=== PATIENT | female | born 1995 | race Caucasian/White ===

== ENCOUNTER → 2020-04-01 09:45 | Outpatient (CLI) | payer OTHER, SELFPAY ==
--- NOTE | 2020-04-01 09:49 | US_ITS ---
PROCEDURE: US OB /MATERNAL DETAIL CLINICAL INDICATION: 20 week gestation Anatomy evaluation COMPARISON: No exams were available for comparison FINDINGS: There is a single live fetus which is in cephalic presentation. The cervix is closed and measures 5 cm transabdominal. Placenta is anterior in implantation and grade 1. The . Complete survey performed and was unremarkable on the submitted images as in PACS. No discrete anomalies identified on survey imaging by technologist. Active fetus. Three-vessel cord with satisfactory umbilical cord insertion. 4- chamber heart noted. Survey of brain & ventricles Unremarkable. Face and neck survey unremarkable. Diaphragm and chest views unremarkable. Abdomen: Both kidneys noted and unremarkable. Stomach noted and satisfactory. Spine: Survey of the spine satisfactory with no anomalies identified nor imaged. Both arms and legs noted. Amniotic Fluid: Adequate. Maternal adnexa: No significant findings. Measurements: Average ultrasound age 20weeks 1day. Gestational Age the 21 weeks 6 days Estimated due date by ultrasound age 1008/18/2020. Estimated weight 335g BPD = 20weeks 2days OFD = 20 weeks 4 days HC = 19weeks 4days AC = 20weeks 3days FL = 20weeks 1day Growth Percentile= 2 percent% Heart Rate = 144bpm Cerebellum = 20weeks Humerus = 20weeks 3days HC/AC is 1.12 CI is 0.78 FL/BPD is 0.69 FL/AC is 0.21 IMPRESSION: There is a live IUP present at 20 weeks and 1 day. heart body motion noted. There is cephalic position. No obvious anomalies. All parameters correlate. The growth percentile is low at 2 percent but could be due to inaccurate dates. Please correlate with clinical findings. Dictated by: Genaro Simms MD 04/01/2020 16:33 Electronically signed by Genaro Simms MD in [place] 04/01/2020 16:33
== END ==
PROVIDERS: Visit Provider Nurse Practitioner Obstetrics & Gynecology
DX: Z3A.20 20 weeks gestation of pregnancy (principal)
CPT/HCPCS: 76811

== ENCOUNTER → 2020-04-01 10:51 | Outpatient (CLI) | payer OTHER, SELFPAY ==
[2020-04-01 12:22] LABS: Basophils # 0.1 K/mm3 (0-0.2); Basophils % 0.7 % (0.1-2.0); Eosinophils % 0.4 % (0.1-12.0); Hemoglobin 12.8 g/dL (12.2-16.2); Lymphocytes # 1.6 K/mm3 (0.7-4.5); Lymphocytes % 20.6 % (10-50); Mean Corpuscular HGB Conc 33.8 g/dL (31.8-35.4); Mean Corpuscular Hemoglobin 31.4 pg (27.0-31.2); Mean Corpuscular Volume 92.8 fl (81-99); Mean Platelet Volume 8.5 fl (7.4-10.4); Monocytes # 0.3 K/mm3 (0.1-1.0); Monocytes % 3.3 % (1.7-9.3); Neutrophils # 5.7 K/mm3 (1.8-7.8); Platelet Count 207 K/mm3 (142-424); Red Cell Distribution Width 14.3 % (11.5-17.5); White Blood Count 7.6 K/mm3 (4.8-10.8)
[2020-04-02 08:13] LABS: HIV Screen 4th Generation wRfx Non Reactive (Non Reactive)
[2020-04-02 14:16] LABS: Hepatitis B Surface Antigen Negative (Negative); Hepatitis C Antibody <0.1 s/co ratio (0.0-0.9); Rapid Plasma Reagin Ab Titer Non Reactive (NonRea<1:1); Rubella Antibodies, IgG 8.47 index (Immune >0.99)
== END ==
PROVIDERS: Visit Provider Nurse Practitioner Obstetrics & Gynecology
DX: Z3A.20 20 weeks gestation of pregnancy (principal)
CPT/HCPCS: 36415; 85025; 86592; 86703; 86762; 86850; 87340; 87380; G0432

== ENCOUNTER 2020-07-02 08:36 | Outpatient (CLI) | payer OTHER, SELFPAY ==
[2020-07-02 09:20] LABS: Glucose,Fasting 99 mg/dl (74-100)
[2020-07-02 10:45] LABS: Glucose 1 Hour 183 mg/dL (74-100)
[2020-07-02 10:55] VITALS: BP 132/70; PULSE 104; RESP 18; TEMP 36.6; O2SAT 97
== END 2020-07-02 10:55 | disposition home or self-care (01) ==
LOC: LAB 08:38 → INF 10:59
PROVIDERS: Visit Provider Nurse Practitioner Obstetrics & Gynecology
DX: Z34.90 Encounter for supervision of normal pregnancy, unspecified, unspecified trimester (principal)
CPT/HCPCS: 36415; 82951; 96372; J2790

== ENCOUNTER → 2020-08-06 17:32 | Outpatient (CLI) | payer OTHER, SELFPAY | PROVIDERS: Visit Provider Nurse Practitioner Obstetrics & Gynecology | DX: Z34.90 Encounter for supervision of normal pregnancy, unspecified, unspecified trimester (principal) | CPT/HCPCS: 86403 ==

== ENCOUNTER 2020-08-09 06:10 | Inpatient (IN) | payer OTHER, SELFPAY ==
[2020-08-09 06:18] VITALS: BMI 37.3
[2020-08-09 06:34] LABS: Microscopic, Urine URINE MICROSCOPIC (MICROSCOPIC)
[2020-08-09 06:37] LABS: Basophils % 0.3 % (0.1-2.0); Eosinophils # 0.1 K/mm3 (0.0-0.4); Eosinophils % 0.5 % (0.1-12.0); Hemoglobin 11.7 g/dL (12.2-16.2); Lymphocytes # 2.1 K/mm3 (0.7-4.5); Lymphocytes % 18.2 % (10-50); Mean Corpuscular HGB Conc 31.6 g/dL (31.8-35.4); Mean Corpuscular Hemoglobin 27.2 pg (27.0-31.2); Mean Corpuscular Volume 86.1 fl (81-99); Mean Platelet Volume 10.1 fl (7.4-10.4); Monocytes # 0.5 K/mm3 (0.1-1.0); Monocytes % 4.4 % (1.7-9.3); Neutrophils # 8.9 K/mm3 (1.8-7.8); Neutrophils % 76.6 % (37.0-80.0); Platelet Count 232 K/mm3 (142-424); Red Cell Distribution Width 13.8 % (11.5-17.5); White Blood Count 11.6 K/mm3 (4.8-10.8)
[2020-08-09 06:42] LABS: Appearance,Urine CLEAR (Clear); Bilirubin,Urine Negative (Negative); Blood, Urine 2+ (Negative); Color,Urine YELLOW (Yellow); Glucose,Urine (UA) Negative (Negative); Ketones,Urine Negative (Negative); Leukocyte Esterase,Urine 1+ (Negative); Nitrate,Urine Negative (Negative); Protein,Urine Negative (Negative); Urobilinogen,Urine 0.2 EU/dl (0.2)
[2020-08-09 06:52] LABS: Benzodiazepines Screen,Urine Negative ng/ml (<200)
[2020-08-09 06:53] LABS: Amphetamine/Metha Screen,Urine Negative ng/ml (<1000)
--- NOTE | 2020-08-09 06:53 | HMH.LABNOT ---
Labor Note - Subjective: Date: 08/09/20 Time: 06:53 regular contraction - Objective: NST:: Reactive Contractions:: every 2-3 minutes Cervical Dilation:: 8 Effacement:: 100% Station: 0 Membranes: artificially ruptured - Fetus: Monitoring?: Yes monitoring type:: External - Assessment: Labor progressing?: Yes Cephalopelvic disproportion?: No Patient Problems: All Active Problems (Acute) - Plan: Anesthesia for epidural?: No Continue to labor down?: Yes Plan for ?: No Continue to monitor?: Yes Start pushing?: No
[2020-08-09 06:54] LABS: Bacteria,Urine 1+ /lpf; Barbiturates Screen,Urine Negative ng/ml (<200); Methadone Screen,Urine Negative ng/ml (<300)
[2020-08-09 06:54] LABS: Glucose,Random 110 mg/dL (74-100)
--- NOTE | 2020-08-09 06:54 | HMH.OBAPHP ---
OB - H&P: HPI Antepartum - History of Present Illness Chief complaint: Regular contractions History of present illness: She is a 25-year-old 2 para 0 aborta 1 who was 38 and 4 weeks gestational age. She has had contractions for the last day. She came in in active labor and was found to be 8 cm dilated. - History of Present Criteria for establishing EDC:: LMP confirmed by 1st trimester US care: good care Ultrasounds: normal 1st trimester US, normal mid trimester US Obstetrical complications: none Medical complications: none - Labs Blood type: O (-) negative Rubella: immune RPR/VDRL: nonreactive GBS status: negative HBsAG: negative [facility] History I have reviewed the patient's past medical history: Yes Medical History: Reports:: Seizures *Have you ever received a pneumonia vaccine?: No *Have you received a flu vaccine this season?: No (not flu season) Other Surgeries: Yes: No Previous Surgery Amputation: No Fractures: No - *Social History Smoking Status: Current every day smoker Tobacco Type: cigarettes # Packs/Day (cigarettes): 1 Alcohol Intake: never *Occupational Status:: unemployed Housing: house Household Members: significant other *Travel in the last 8 weeks: None Family Hx:: No significant family history Review of Systems - Review of Systems Review of systems:: pertinent systems reviewed and negative unless documented below Meds Home Medications Medication Instructions Recorded Confirmed Type ferrous sulfate 325 mg (65 mg 325 mg PO DAILY #30 tab 04/01/20 08/06/20 Rx iron) tablet prenat.vits,álvaro,vyv-grrf-efkxj 1 tab PO DAILY 30 Days #30 tab 04/01/20 08/06/20 Rx acetaminophen 300 mg-codeine 30 mg 1 tab PO Q8H PRN #30 tab 07/09/20 08/06/20 Rx tablet Allergies Allergy/AdvReac Type Severity Reaction Status Date / Time cefaclor [From [facility]] Allergy Unknown Verified 08/06/20 16:25 OB - H&P: Exam - Constitutional no acute distress - Routine HEENT Exam Head: Present: normocephalic Eye: Present: EOMI, PERRL ENT: Present: mucous membranes moist - Routine Neck Exam Present: supple, full ROM - Routine Respiratory Exam Absent: accessory muscle use (good air entry bilaterally), respiratory distress, wheezes, crackles - Routine Cardiovascular Exam Present: RRR. Absent: murmur - Routine Abdominal Exam Present: soft, normoactive bowel sounds. Absent: tenderness, distended, guarding - Routine Rectal Exam Patient deferred: visual exam, digital exam - Routine Exam Patient deferred: external exam, groin exam, perineal exam - Routine Extremities Exam Present: full ROM. Absent: cyanosis, edema - Routine Skin Exam Present: intact. Absent: cyanosis - Routine Neurological Exam Present: alert, oriented X3 - Routine Psychiatric Exam Present: normal affect OB - Results - Labs Labs: Short CBC 08/09/20 Range/Units 06:25 WBC 11.6 H (4.8-10.8) K/mm3 Hgb 11.7 L (12.2-16.2) g/dL Hct 37.0 (37.0-47.0) % Plt Count 232 (142-424) K/mm3 Urine 08/09/20 Range/Units 05:50 Urine Color Yellow (Yellow) Urine Appearance Clear (Clear) Urine pH 6.0 (5.0-8.5) Ur Specific [place] 1.010 (1.005-1.030) Urine Protein Negative (Negative) Urine Glucose (UA) Negative (Negative) OB - A/P Antepartum (1) Normal delivery at term Status: Acute (2) Deaf mutism, congenital Status: Acute - Additional Plan Planning to breastfeed?: No Plan: expectant management Additional Information:: I ruptured her membranes and there was clear fluid. Will expect a vaginal delivery.
[2020-08-09 06:55] LABS: Cannabinoid Screen,Urine Negative ng/ml (<50)
[2020-08-09 06:56] LABS: Cocaine Screen,Urine Negative ng/ml (<300); Opiate Screen,Urine Negative ng/ml (<300)
[2020-08-09 06:57] LABS: Phencyclidine Screen,Urine Negative ng/ml (<25)
[2020-08-09 07:05] VITALS: BMI 37.3
[2020-08-09 07:09] LABS: Coronavirus 19 IgG Antibody Negative (Negative); Coronavirus 19 IgM Antibody Negative (Negative)
[2020-08-09 07:10] VITALS: BP 131/84; PULSE 90; RESP 20; TEMP 36.6; O2SAT 99
--- NOTE | 2020-08-09 09:49 | HMH.LABNOT ---
Labor Note - Subjective: Date: 08/09/20 Time: 09:49 regular contraction - Objective: NST:: Reactive Contractions:: every 2-3 minutes Cervical Dilation:: 9-10 Effacement:: 100% Station: +1 Membranes: artificially ruptured - Fetus: Monitoring?: Yes monitoring type:: External - Assessment: Labor progressing?: Yes Cephalopelvic disproportion?: No Patient Problems: All Active Problems Normal delivery at term (Acute) Deaf mutism, congenital (Acute) (Acute) - Plan: Anesthesia for epidural?: No Continue to labor down?: Yes Plan for ?: No Continue to monitor?: Yes Start pushing?: Yes
--- NOTE | 2020-08-09 10:48 | P.PCN_ITS ---
- Delivery Note Delivery Date:: 08/09/20 Delivery Time:: 10:28 Anesthesia Type: None Was labor medically induced?: No Induction method: none Gestational age (weeks): 38 delivered prior to 39 weeks?: Yes Justification for early elective delivery:: Active Labor Infant Gender: Male at 1 minute: 9 at 5 minutes: 9 LAC or MLE?: LAC Delivery Procedure:: She is a 25-year-old 2 para 0 aborta 1 who was 38 and 4 weeks gestatio nal age. She came in in active labor. She arrived and was found to be 8 cm dilated. She subsequently had her membranes ruptured and was augmented with oxytocin. She progressed to full dilation and delivered spontaneously a liveborn male child at 10:28 AM on the morning of August 09, 2020. On deliver the shoulder the rest the 's body rapidly delivered. The baby was vigorous and the oropharynx and nasopharynx were bulb suctioned. We allowed the cord to continue to pulsate for approximately 1 minute. We then doubly clamped the cord and cut the cord. The baby was then placed on the mother's abdomen for further care. The nurses assigned Apgars of 9 at 1 minute and 9 at 5 minutes. We then obtained cord blood as well as cord pH. She received IV oxytocin using gentle traction on the cord and countertraction the fundus I was able to easily deliver the placenta intact at 10:31 AM. He had a normal three-vessel cord. She had a second-degree perineal laceration. I infiltrated 20 cc of 1% Xylocaine subcutaneously. I then closed the vaginal closed using running 3-0 Vicryl Rapide suture in a locked fashion. The deep tissues of the perineum were then closed with 2-0 Vicryl suture. The skin was closed with subcuticular interrupted 2-0 Vicryl suture. She has O Rh- blood, she is rubella immune and her group B streptococcus status was unknown. She did receive IV antibiotics while in labor. Her estimated blood loss was approximately 350 cc. Laceration:: vaginal Placental Delivery Description: Spontaneous
[2020-08-09 12:05] VITALS: BP 125/75; PULSE 88; RESP 18; TEMP 36.6
[2020-08-09 16:23] VITALS: BP 122/79; PULSE 101; RESP 18; TEMP 36.5
[2020-08-09 19:53] VITALS: BP 137/85; PULSE 97; RESP 18; TEMP 36.8; O2SAT 99
[2020-08-10 03:07] VITALS: BP 128/84; PULSE 99; RESP 18; TEMP 36.7; O2SAT 99
[2020-08-10 05:42] LABS: Hematocrit 29.6 % (37.0-47.0); Hemoglobin 9.4 g/dL (12.2-16.2)
[2020-08-10 08:10] VITALS: BP 129/84; PULSE 105; RESP 18; TEMP 36.7; O2SAT 100
[2020-08-10 12:03] VITALS: BP 127/88; PULSE 89; RESP 18; TEMP 36.6; O2SAT 98
[2020-08-10 16:42] VITALS: BP 130/72; PULSE 110; RESP 18; TEMP 36.8; O2SAT 99
--- NOTE | 2020-08-10 19:00 | HMH.ACPN2 ---
Internal Medicine - PN: Subj *Date: 08/10/20 *Time: 19:00 Interval history: She is doing very well this evening. She is eating and drinking and ambulating. She is bottlefeeding. Her lochia is normal. She received RhoGam earlier today. Exam Vital signs and Labs for Last 24 Hours: Temp Pulse Resp BP Pulse Ox 98.3 F 110 H 18 130/72 99 08/10/20 16:42 08/10/20 16:42 08/10/20 16:42 08/10/20 16:42 08/10/20 16:42 Laboratory Results - last 24 hr 08/10/20 05:25: Hgb 9.4 L D, Hct 29.6 L 08/10/20 05:25: Blood Type O Negative, Antibody Screen Negative, Screen Negative, Baby's Rh Status Positive 08/10/20 09:33: Rhogam Infusion Rhogam release I & O for Last 24 hours: Intake & Output 08/08/20 08/09/20 08/10/20 08/11/20 11:59 11:59 11:59 11:59 Weight 191 lb Microbiology Reports for the Last 24 Hours: Microbiology 08/09/20 05:50 Urine,Clean Catch Urine Culture - Preliminary - Constitutional no acute distress - *Routine HEENT Exam Head: Present: normocephalic Eye: Present: EOMI, PERRL ENT: Present: mucous membranes moist Assessment and Plan (1) Normal delivery at term Status: Acute Category: Medical Code(s): O80 - Encounter for full-term uncomplicated delivery (2) Deaf mutism, congenital Status: Acute Category: Medical Code(s): H91.3 - Deaf nonspeaking, not elsewhere classified - Assessment and plan all Dx Assessment and Plan for all problems:: She continues to do well. We will plan to send her home in the morning.
[2020-08-10 19:53] VITALS: BP 134/86; PULSE 110; RESP 18; TEMP 36.8; O2SAT 99
[2020-08-11 00:09] VITALS: BP 126/86; PULSE 97; RESP 18; TEMP 36.8; O2SAT 99
[2020-08-11 03:59] VITALS: BP 119/82; PULSE 90; RESP 18; TEMP 36.8; O2SAT 99
[2020-08-11 07:54] VITALS: BP 123/83; PULSE 96; RESP 18; TEMP 36.8; O2SAT 99
--- NOTE | 2020-08-11 09:06 | HMH.OBDCSM ---
General - General Admission date:: 08/09/20 Discharge date: 08/11/20 HPI - History of Present Illness History of present illness: She is a 25-year-old 3 now para 1 aborta 2 who was 38 and 4 weeks gestational age. She came in active labor. When she arrived she was found to be 8 cm dilated. Hospital Course Hospital Course: She subsequently progressed to full dilation and delivered spontaneously a liveborn male child at 10:28 AM on the morning of August 09, 2020. The baby weighed 7 pounds 7 ounces and was 20 inches long. He had Apgars of 9 at 1 minute and 9 at 5 minutes. She had a second-degree perineal laceration. She has done well and has remained afebrile throughout her hospitalization. She is eating and drinking and ambulating. She is bottlefeeding. Her social security assessor is Dr. Austin. She has O Rh- blood and she has received RhoGam. She was rubella immune and group B streptococcus was unknown at the time of her delivery. She did receive IV antibiotics while in labor. She is discharged home to follow-up with me in approximately 2 weeks time. We will continue with her vitamins and iron. She will take ymdk-ffg-[id number] analgesics for her discomfort. She was given the usual instructions with respect to limiting her activity, driving and sexual activity. Her condition on discharge is stable and improved. Rhogam Administration: Given Objective Vital signs: Temp Pulse Resp BP Pulse Ox 98.3 F 96 H 18 123/83 99 08/11/20 07:54 08/11/20 07:54 08/11/20 07:54 08/11/20 07:54 08/11/20 07:54 no acute distress - *Routine HEENT Exam Head: Present: normocephalic Eye: Present: EOMI, PERRL ENT: Present: mucous membranes moist Results Labs on day of discharge: Labs from last 24 hours 08/10/20 09:33 Rhogam Infusion Rhogam release Preliminary micro results at discharge 08/09/20 05:50 Urine Culture - Preliminary Urine,Clean Catch DS: Diagnosis - Discharge Diagnosis (1) Normal delivery at term Status: Acute (2) Deaf mutism, congenital Status: Acute Discharge Plan - Patient Discharge Instructions ACTIVITY: No heavy lifting DIET: continue same diet Additional Instructions: No heavy lifting or strenuous activity, nothing in the vagina for 6 weeks. Patient Instructions: Depression, Hemorrhage, DI for Labor and Delivery, Vaginal , DI for Pre-eclampsia, [facility] Post Discharge Instructions, Preventing the Spread of Coronavirus Discharge Instructions - Follow up Plan Follow up with: Asif Gallagher MD [Staff Physician] - Disposition: Home, Self-[facility] Medications: Home Medications Medication Instructions Recorded Confirmed Type acetaminophen 300 mg-codeine 30 mg 1 tab PO Q8H PRN #30 tab 07/09/20 08/09/20 Rx tablet Ferrous Sulfate 325 mg PO DAILY 08/09/20 08/09/20 History Vit Calc,Iron,Folic [Kpn] 1 tab PO DAILY 08/09/20 08/09/20 History Prescriptions/Medication Reconciliation: Continued acetaminophen 300 mg-codeine 30 mg tablet 1 tab PO Q8H PRN #30 tab PRN Reason: pain Vit Calc,Iron,Folic [Kpn] 1 tab PO DAILY Ferrous Sulfate 325 mg PO DAILY - Problem Reconciliation Problems Reviewed?: Yes
[2020-08-11 11:45] VITALS: BP 120/60; PULSE 92; RESP 20; TEMP 36.9
--- NOTE | 2020-08-11 13:10 | SW/DCPLANNER ---
Addendum entered by Maria Victoria Melara 08/11/20 14:33: I have followed up with [facility] and this case did NOT meet criteria for CPS to investigate. I will also relay message to OB staff. Original Note: I have visited with: patient, infant (Alvin Hankins [birth year]/09/2020), infants father (Rasheed Petitt 02/11/1981) and family member Julieth Ramirez. Julieth was present during my visit to translate due to Betsy and Rasheed being deaf. All questions were able to be answered at time of my visit. Patient stated she found out she was at 10 weeks but due to COVID and being scared to come to [facility] she did not have her first visit till 20 weeks. Patient only had a total of 4 visits. Patient stated that one visit she was sick and one visit did not have transportation. I have stressed the importance to Julieth the importance of returning to all follow up visits once discharging. Patient and will both discharge today. Patient, Rasheed and will reside at [address] [place] [address] and Julieth lives down the [address]. Angel contact number is [phone]. This is patients first child. Patient is already established with [facility] but has refused HANDS at this time. Patient does have a crib, carseat, clothing and diapers. Nursing staff (Charlene Peraza) has reported that patient and Rasheed were timid yesterday with care for infant but has improved today. I have reported this case to [facility] ID# is [id number].
== END 2020-08-11 12:30 | disposition home or self-care (01) | DRG 807 ==
LOC: OBOUT 06:13 → OB 06:13
PROVIDERS: Admitting Provider Nurse Practitioner Obstetrics & Gynecology; PCP Nurse Practitioner Family; Visit Provider Nurse Practitioner Obstetrics & Gynecology
DX: O70.1 Second degree perineal laceration during delivery (principal); Z37.0 Single live birth; Z3A.38 38 weeks gestation of pregnancy; Z23 Encounter for immunization; H91.3 Deaf nonspeaking, not elsewhere classified
CPT/HCPCS: 59409; 36415; 59025; 80305; 81001; 82800; 82947; 85014; 85018; 85025; 85461; 86328; 86403; 86850; 86870; 87086; J0290; J2790

== ENCOUNTER → 2020-09-03 09:09 | Outpatient (CLI) | payer OTHER, SELFPAY ==
[2020-09-03 09:46] LABS: Basophils # 0.1 K/mm3 (0-0.2); Basophils % 0.8 % (0.1-2.0); Eosinophils # 0.1 K/mm3 (0.0-0.4); Eosinophils % 1.2 % (0.1-12.0); Hematocrit 40.9 % (37.0-47.0); Hemoglobin 12.2 g/dL (12.2-16.2); Lymphocytes # 1.9 K/mm3 (0.7-4.5); Lymphocytes % 33.3 % (10-50); Mean Corpuscular HGB Conc 29.9 g/dL (31.8-35.4); Mean Corpuscular Hemoglobin 25.3 pg (27.0-31.2); Mean Corpuscular Volume 84.7 fl (81-99); Mean Platelet Volume 7.8 fl (7.4-10.4); Monocytes # 0.3 K/mm3 (0.1-1.0); Monocytes % 4.6 % (1.7-9.3); Neutrophils # 3.4 K/mm3 (1.8-7.8); Platelet Count 309 K/mm3 (142-424); Red Blood Count 4.84 M/mm3 (4.20-5.40); Red Cell Distribution Width 14.8 % (11.5-17.5); White Blood Count 5.6 K/mm3 (4.8-10.8)
[2020-09-03 10:04] LABS: Urine Pregnancy, HCG Qual. Negative (Negative)
[2020-09-03 10:37] LABS: Chloride 104 mmol/L (98-107); Potassium 4.3 mmoL/L (3.5-5.1); Sodium 140 mmol/L (136-145)
[2020-09-03 10:40] LABS: Anion Gap 13.3 mEq/L (5-15); Blood Urea Nitrogen 12 mg/dl (7-17); Carbon Dioxide 27 mmol/L (22.0-30.0); Estimated Glomerular Filt Rate 87 ml/min (>60); GFR (African American) 106 ML/MIN (>60); Glucose 99 mg/dl (74-100)
[2020-09-03 10:41] LABS: Calcium 9.6 mg/dl (8.4-10.2)
[2020-09-03 15:10] LABS: Coronavirus 19 IgG Antibody Negative (Negative); Coronavirus 19 IgM Antibody Negative (Negative)
== END ==
PROVIDERS: Visit Provider Otolaryngology
DX: Z01.818 Encounter for other preprocedural examination (principal); H61.92 Disorder of left external ear, unspecified
CPT/HCPCS: 36415; 80048; 81025; 85025; 86328

== ENCOUNTER 2020-09-04 06:48 | Day surgery (SDC) | payer OTHER, SELFPAY ==
[2020-09-04 07:55] VITALS: BMI 32.3
[2020-09-04 08:04] VITALS: BP 142/90; PULSE 83; RESP 20; TEMP 37.1; O2SAT 100
--- NOTE | 2020-09-04 09:56 | HMH.OPNOTE ---
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 The perilesional area was infiltrated with a total of 3 cc of 2% lidocaine containing epinephrine. The lobulated lesion commenced on the anterior surface extended through the ear lobule to the posterior surface. The perilesional area was marked out and skin subcutaneous tissue were incised tenotomy scissors were then used to mobilize the corner which extended into the posterior component. The posterior component was incised in elliptical fashion and carried through to the anterior component the specimen was removed in entirety. And submitted. Bleeding was stopped with bipolar cautery blood loss was less than 4 cc. Anterior and posterior incisions were made both on the anterior and posterior surface and a Z-plasty tissue rearrangement was done on both surfaces with 2-0 Vicryl after the subcutaneous layer was closed with 2-0 chromic. An excellent repair was obtained. A Dermabond dressing was applied and the patient was sent to recovery in good general condition. Condition: stable Disposition: PACU Complications:: none
--- NOTE | 2020-09-04 09:57 | HMH.ANESCL ---
[facility] Anesthesia Checklist - Patient Identification Patient Identification: Arm Band - Structural Data Admitted From: Home Planned Operative Procedure/s: excision lesion left ear lobe Consent for Planned Operative Procedure(s) Verified: Yes Verified Documents: Surgical Consent, History and Physical - NPO Status Verified Time NPO: 00:00 - Additional verifications Anesthesia Reactions: No Hx Blood Transfusions: No Blood Transfusion Reaction: No - Airway Assessment C-Spine Mobility Assessed: Yes (mp2) TMJ Mobility Assessed: Yes Dentition: Good Dentition - Neurological Assessment Level of Consciousness: Awake, Alert - Anesthesia Plan Anesthesia Risk discussed: Yes Anesthesia Plan: Verified ASA Class: II Anesthesia Type: MAC [facility] History I have reviewed the patient's past medical history: Yes Medical History: Reports:: Seizures Denies:: Cancer, Diabetes Mellitus Type 1, Diabetes Mellitus Type 2, Internal Pacemaker, MRSA *Have you ever received a pneumonia vaccine?: No *Have you received a flu vaccine this season?: No Other Medical History: Denies: Blood Transfusion Reaction Anesthesia experience/problems:: nac Other Surgeries: Yes: No Previous Surgery. No: , Pacemaker Amputation: No Fractures: No - *Social History Last grade of school completed: High school graduate Smoking Status: Current every day smoker Tobacco Type: cigarettes # Packs/Day (cigarettes): 1 Alcohol Intake: never Alcohol Intake Frequency:: other Substance Use Type: denies use *Occupational Status:: disabled Housing: house Household Members: family *Travel in the last 8 weeks: None Family Hx:: No significant family history [employer] history: Spontaneous
[2020-09-04 10:00] VITALS: BP 117/93; PULSE 80; RESP 18; TEMP 36.6; O2SAT 98
[2020-09-04 10:15] VITALS: BP 114/71; PULSE 74; RESP 18; O2SAT 100
[2020-09-04 10:30] VITALS: BP 115/89; PULSE 68; RESP 18; O2SAT 99
== END 2020-09-04 10:30 | disposition home or self-care (01) ==
LOC: OR 06:52
PROVIDERS: PCP Nurse Practitioner Obstetrics & Gynecology; Visit Provider Otolaryngology
PROC: (CPT 14060; principal; 2020-09-04 09:30)
DX: D23.22 Other benign neoplasm of skin of left ear and external auricular canal (principal); H91.3 Deaf nonspeaking, not elsewhere classified
CPT/HCPCS: 14060; 96374; 96375

== ENCOUNTER 2021-01-08 12:37 | Emergency (ER) | payer OTHER, SELFPAY ==
[2021-01-08 12:52] VITALS: BP 150/83; PULSE 94; RESP 16; TEMP 36.6; O2SAT 98; BMI 32.3
--- NOTE | 2021-01-08 12:54 | XR_ITS ---
PROCEDURE: XR FOREARM LT 2V CLINICAL INDICATION: pain COMPARISON: CR XR WRIST LT MIN 3V from 01/08/2021 FINDINGS: No fracture or dislocation. No lytic or blastic change. There is normal mineralization. The joint spaces are well-preserved. No significant degenerative/arthritic changes. No erosive changes evident. Other findings:None. IMPRESSION: No acute findings. Dictated by: Genaro Simms MD 01/08/2021 14:15 Genaro Simms MD in [place] 01/08/2021 14:15
--- NOTE | 2021-01-08 12:59 | HMH.EDUTC ---
[facility] [place] Clinical Impression: Wrist sprain Qualifiers: Encounter type: initial encounter Laterality: left Qualified Code(s): S63.502A - Unspecified sprain of left wrist, initial encounter Disposition: Home, Self-Care Condition on Discharge: Good Instructions: Wrist Sprain, DI for Wrist Sprain Additional Instructions: *RICE, Rest the extremity, Ice 15-20 minutes 3-4 times daily, Compress- wear the simone wrap as discussed as much as possible to help reduce swelling and pain, Elevate the extremity when at rest *Simone wrap/Velcro Wrist splint is for support and help control swelling, use it except in the shower. Be sure that is not to tight but not to loose either *Elevate when resting *Ibuprofen every 6-8 hours as needed for pain an inflammation. If need something more can take Tylenol in between doses of Ibuprofen to help Immediately follow up with your family doctor for new or worsening of symptoms, or no noticeable improvement over the next 3-5 days Call back to the [facility] later this evening for the official reading of your Xray by the Radiologist Return if needed Straight to ER if any life threatening symptoms Referrals: PCP,No [Primary Care Provider] - As needed Piper Ribera MD [Physician] - As needed Time of Disposition: 13:29 Medical Decision Making - Néstor Inquiry Pt receiving controlled substance: No Néstor was queried for this patient: No Vital Signs: 01/08/21 12:52 01/08/21 13:49 Temperature 98 F 98 F Temperature Source Oral Pulse Rate 87 Pulse Rate [Left] 94 H Respiratory Rate 16 16 Blood Pressure 144/79 H Blood Pressure [Right Arm] 150/83 H Blood Pressure Mean [Right Arm] 105 Blood Pressure Source [Right Arm] Automatic Cuff Blood Pressure Position [Right Arm] Sitting 02 Sat by Pulse Oximetry 98 Oxygen Delivery Method Room Air - Radiology Data #1 Image(s): Wrist Image Reviewed: Yes I reviewed the patient's radiology image Preliminary Findings: No Fracture Seen will place in velcro wrist splint and have patient call back to the [facility] for official Radiology Reading #2 Image(s): Forearm Image Reviewed: Yes I reviewed the patient's radiology image Preliminary Findings: No Fracture [place]en [facility] [place] - General Stated complaint: Lt wrist pain, no ao Time Seen by Provider: 01/08/21 12:59 Mode of Arrival: Ambulatory Source of Information: Patient Limitations: No Limitations Description of Symptoms (Recalled from Triage Doc. by RN): left wrist and forearm pain. unsure if there was any injury. pain is a 9/10 HEENT Symptoms (Recalled from RN notes): No Resp Symptoms (Recalled from RN notes): No Skin Symptoms (Recalled from RN notes): No MS Symptoms (Recalled from RN notes): Yes (L wrist and forearm pain. minimal swelling around the wrist.) Functional Status (Recalled from RN notes): na - History of Present Illness Provider Complaint: Patient is hearing impaired but able to write out resposes, Reports that she has been having pain in her left wrist/forearm for several days Denies known injury reports that she has small infant and has been doing alot of lifting on him Reports able to move wrist but pain is worse with movement - Related Data Home Medications Medication Instructions Recorded Confirmed Ferrous Sulfate 325 mg PO DAILY 08/09/20 10/16/20 Vit Calc,Iron,Folic [Kpn] 1 tab PO DAILY 08/09/20 10/16/20 Allergies Allergy/AdvReac Type Severity Reaction Status Date / Time cefaclor [From Ceclor] Allergy Unknown Verified 01/08/21 12:44 - Worker's Comp Is this a Worker's Comp case?: No [facility] History - Hepatitis A Screen Drug use history?: No High risk sexual behaviors?: No History of sexually transmitted infection?: No Currently employed?: 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 I have reviewed the patient's pa
[2021-01-08 13:49] VITALS: BP 144/79; PULSE 87; RESP 16; TEMP 36.6
== END 2021-01-08 13:50 | disposition home or self-care (01) ==
PROVIDERS: Emergency Provider Nurse Practitioner
DX: S63.502A Unspecified sprain of left wrist, initial encounter (principal); X50.3XXA Overexertion from repetitive movements, initial encounter; Y92.019 Unspecified place in single-family (private) house as the place of occurrence of the external cause; H91.3 Deaf nonspeaking, not elsewhere classified
CPT/HCPCS: 29125; 73090; 73110; 99202; G0463

== ENCOUNTER → 2021-03-12 12:06 | Outpatient (CLI) | payer OTHER, SELFPAY | PROVIDERS: Visit Provider Nurse Practitioner Obstetrics & Gynecology | DX: N92.6 Irregular menstruation, unspecified (principal) | CPT/HCPCS: 36415; 84702 ==

== ENCOUNTER → 2021-04-02 12:00 | Outpatient (CLI) | payer OTHER, SELFPAY ==
[2021-04-02 12:41] LABS: Basophils % 0.3 % (0.1-2.0); Eosinophils # 0.1 K/mm3 (0.0-0.4); Eosinophils % 0.6 % (0.1-12.0); Hematocrit 39.2 % (37.0-47.0); Hemoglobin 13.7 g/dL (12.2-16.2); Lymphocytes # 2.1 K/mm3 (0.7-4.5); Lymphocytes % 28.3 % (10-50); Mean Corpuscular Hemoglobin 28.9 pg (27.0-31.2); Mean Corpuscular Volume 82.6 fl (81-99); Mean Platelet Volume 9.9 fl (7.4-10.4); Monocytes # 0.3 K/mm3 (0.1-1.0); Monocytes % 4.2 % (1.7-9.3); Neutrophils % 66.6 % (37.0-80.0); Platelet Count 191 K/mm3 (142-424); Red Blood Count 4.74 M/mm3 (4.20-5.40); White Blood Count 7.5 K/mm3 (4.8-10.8)
[2021-04-03 08:15] LABS: HIV Screen 4th Generation wRfx Non Reactive (Non Reactive)
[2021-04-03 10:15] LABS: HSV 2 IgG, Type Spec <0.91 index (0.00-0.90)
[2021-04-03 11:16] LABS: Hepatitis B Surface Antigen Negative (Negative); Hepatitis C Antibody <0.1 s/co ratio (0.0-0.9); Rapid Plasma Reagin Ab Titer Non Reactive (NonRea<1:1)
== END ==
PROVIDERS: Visit Provider Nurse Practitioner Obstetrics & Gynecology
DX: Z34.90 Encounter for supervision of normal pregnancy, unspecified, unspecified trimester (principal)
CPT/HCPCS: 36415; 85025; 86592; 86695; 86703; 86762; 86790; 86850; 87340; 87380; G0432

== ENCOUNTER → 2021-04-09 08:30 | Outpatient (CLI) | payer OTHER, SELFPAY ==
--- NOTE | 2021-04-09 08:31 | US_ITS ---
PROCEDURE: US OB <= 14 WEEKS FETUS CLINICAL INDICATION: for dates Ob ultrasound for dates COMPARISON: US US OB /MATERNAL DETAIL from 04/01/2020 FINDINGS: There is a single live intrauterine gestation present. Average ultrasound age is 17 weeks 1 day. BPD 17 weeks 3 days, OFD 17 weeks 2 days, HC 16 weeks 6 days, AC 17 weeks 2 days, FL 16 weeks 5 days. Heart tones are present 156 beats per minute. The fetus is in variable position. The placenta is anterior and grade 1 in the cervix appears closed at 3 cm. THIS DOES NOT CONSTITUTE AN ANATOMY EXAM. IMPRESSION: Live IUP at 17 weeks 1 day. Estimated due date by Ultrasound is 09/16/2021 Dictated by: Genaro Simms MD 04/09/2021 12:05 Genaro Simms MD in [place] 04/09/2021 12:05
== END ==
PROVIDERS: PCP Nurse Practitioner Obstetrics & Gynecology; Visit Provider Nurse Practitioner Obstetrics & Gynecology
DX: Z34.90 Encounter for supervision of normal pregnancy, unspecified, unspecified trimester (principal)
CPT/HCPCS: 76805

== ENCOUNTER → 2021-05-08 14:01 | Outpatient (CLI) | payer OTHER, SELFPAY ==
--- NOTE | 2021-05-08 14:03 | US_ITS ---
PROCEDURE: US OB >= 14 WEEKS FETUS CLINICAL INDICATION: 20 week gestation Anatomy exam COMPARISON: US US OB >= 14 WEEKS FETUS from 04/09/2021 FINDINGS: There is a single live intrauterine gestation which is in breech presentation. heart body motion noted. The placenta is anterior and high and grade 1. The cervix is closed measuring 4 cm. Complete survey performed and was unremarkable on the submitted images as in PACS. No discrete anomalies identified on survey imaging by technologist. Active fetus. Three-vessel cord with satisfactory umbilical cord insertion. 4- chamber heart noted. Survey of brain & ventricles Unremarkable. Face and neck survey unremarkable. Diaphragm and chest views unremarkable. Abdomen: Both kidneys noted and unremarkable. Stomach noted and satisfactory. Spine: Survey of the spine satisfactory with no anomalies identified nor imaged. Both arms and legs noted. Amniotic Fluid: Adequate. Maternal adnexa: No significant findings. Measurements: Average ultrasound age 21weeks 2days. Gestational Age 21weeks 2days Estimated due date by ultrasound age 1109/16/2021. Estimated weight 410g BPD = 21weeks 2days OFD = 21weeks 1day HC = 20weeks 4days AC = 21weeks 3days FL = 21weeks 3days Growth Percentile= 42% Heart Rate = 160bpm Cerebellum = 21weeks 4days Humerus = HC/AC is 1.11 CI is 0.79 FL/BPD is 0.71 FL/AC is 0.22 IMPRESSION: Live IUP in breech presentation at 21 weeks 2 days. No obvious anomalies. Please see above for detail. Dictated by: Genaro Simms MD 05/08/2021 15:43 Genaro Simms MD in [facility] 05/08/2021 15:43
== END ==
PROVIDERS: PCP Nurse Practitioner Obstetrics & Gynecology; Visit Provider Nurse Practitioner Obstetrics & Gynecology
DX: Z34.91 Encounter for supervision of normal pregnancy, unspecified, first trimester (principal); Z3A.20 20 weeks gestation of pregnancy
CPT/HCPCS: 76805

== ENCOUNTER 2021-08-06 14:32 | Outpatient (CLI) | payer OTHER, SELFPAY ==
[2021-08-06 15:13] LABS: Glucose,Fasting 88 mg/dl (74-100)
[2021-08-06 16:20] VITALS: BP 126/86; PULSE 99; RESP 17; TEMP 36.7; O2SAT 99
[2021-08-06 16:41] LABS: Glucose 1 Hour 177 mg/dL (74-100)
== END 2021-08-06 16:35 | disposition home or self-care (01) ==
PROVIDERS: Visit Provider Nurse Practitioner Obstetrics & Gynecology
DX: Z34.90 Encounter for supervision of normal pregnancy, unspecified, unspecified trimester (principal)
CPT/HCPCS: 36415; 82951; 96372; J2790

== ENCOUNTER → 2021-08-12 13:09 | Outpatient (CLI) | payer OTHER, SELFPAY ==
--- NOTE | 2021-08-12 13:22 | US_ITS ---
PROCEDURE: US OB BIOPHYSICAL PROFILE CLINICAL INDICATION: growth and CELESTE TECHNIQUE: FINDINGS: The following parameters are obtained: Average ultrasound age is Average 35weeks 5days Estimated due date by ultrasound is 09/11/2021. Estimated weight is 2,713g. This is 64th percentile BPD: 35 weeks 5 days OFD: 39 weeks 2 days HC: 36 weeks 2 days AC: 36 weeks 2 days FL: 34 weeks 1 day heart rate: 152bpm bpm. HC/AC: 0.99 Cephalic index: 0.77 FL/BPD: 0.75 FL/AC: 0.2 Amniotic fluid index: 12.53cm Qualitative AFV: 2 breathing movements: 2 Gross body movements: 2 Tone: 2 Biophysical profile score: 8 Fetus is in breech presentation. The placenta is anterior and grade 2. IMPRESSION: Live IUP at 35 weeks 5 days with an estimated weight of 2713 g which is 64th percentile. The fetus is in breech presentation. Normal amniotic fluid volume with a biophysical profile 8 of 8. The Dictated by: Genaro Simms MD 08/12/2021 19:02 Genaro Simms MD in OV 08/12/2021 19:02
== END ==
PROVIDERS: Visit Provider Nurse Practitioner Obstetrics & Gynecology
DX: Z36.89 Encounter for other specified antenatal screening (principal); Z34.90 Encounter for supervision of normal pregnancy, unspecified, unspecified trimester
CPT/HCPCS: 76816; 76819; 86403

== ENCOUNTER 2021-08-17 11:13 | Outpatient (CLI) | payer OTHER, SELFPAY ==
[2021-08-17 11:30] VITALS: BP 127/87; PULSE 86; RESP 16; TEMP 37; O2SAT 98; BMI 35.8
== END 2021-08-17 12:13 | disposition home or self-care (01) ==
LOC: OBOUT 11:16 → OB 11:19
PROVIDERS: Visit Provider Nurse Practitioner Obstetrics & Gynecology
DX: O16.3 Unspecified maternal hypertension, third trimester (principal); Z3A.35 35 weeks gestation of pregnancy
CPT/HCPCS: 59025; G0463

== ENCOUNTER 2021-08-31 15:38 | Outpatient (CLI) | payer OTHER, SELFPAY ==
[2021-08-31 15:55] VITALS: BP 134/91; PULSE 86; RESP 16; TEMP 36.7; O2SAT 99; BMI 35.9
[2021-08-31 16:00] VITALS: BP 137/86
[2021-08-31 16:15] VITALS: BP 127/81
[2021-08-31 16:30] VITALS: BP 136/95
[2021-08-31 16:45] VITALS: BP 120/76
== END 2021-08-31 17:45 | disposition home or self-care (01) ==
LOC: OBOUT 15:39 → OB 15:41
PROVIDERS: Visit Provider Nurse Practitioner Obstetrics & Gynecology
DX: O13.3 Gestational [pregnancy-induced] hypertension without significant proteinuria, third trimester (principal); Z3A.37 37 weeks gestation of pregnancy
CPT/HCPCS: 59025

== ENCOUNTER 2021-09-09 04:18 | Inpatient (IN) | payer OTHER, SELFPAY ==
[2021-09-09 04:28] VITALS: BMI 35.8
[2021-09-09 05:19] LABS: Coronavirus 19, PCR Not Detected (NotDetected); Influenza A, PCR Not Detected (NotDetected); Influenza B, PCR Not Detected (NotDetected)
[2021-09-09 05:26] LABS: Basophils % 0.5 % (0.1-2.0); Eosinophils % 0.3 % (0.1-12.0); Hematocrit 35.8 % (37.0-47.0); Hemoglobin 11.6 g/dL (12.2-16.2); Lymphocytes # 1.7 K/mm3 (0.7-4.5); Lymphocytes % 21.3 % (10-50); Mean Corpuscular HGB Conc 32.5 g/dL (31.8-35.4); Mean Corpuscular Volume 89.2 fl (81-99); Mean Platelet Volume 11.4 fl (7.4-10.4); Monocytes # 0.4 K/mm3 (0.1-1.0); Monocytes % 4.5 % (1.7-9.3); Neutrophils % 73.5 % (37.0-80.0); Platelet Count 183 K/mm3 (142-424); Red Blood Count 4.01 M/mm3 (4.20-5.40); Red Cell Distribution Width 15.7 % (11.5-17.5); White Blood Count 8.2 K/mm3 (4.8-10.8)
[2021-09-09 05:42] LABS: Barbiturates Screen,Urine Negative ng/ml (<200)
[2021-09-09 05:43] LABS: Amphetamine/Metha Screen,Urine Negative ng/ml (<1000); Benzodiazepines Screen,Urine Negative ng/ml (<200)
[2021-09-09 05:44] LABS: Cannabinoid Screen,Urine Negative ng/ml (<50)
[2021-09-09 05:45] LABS: Cocaine Screen,Urine Negative ng/ml (<300); Methadone Screen,Urine Negative ng/ml (<300)
[2021-09-09 05:46] LABS: Opiate Screen,Urine Negative ng/ml (<300); Phencyclidine Screen,Urine Negative ng/ml (<25)
[2021-09-09 06:39] VITALS: BP 117/85; PULSE 85; RESP 18; TEMP 36.8; O2SAT 100; BMI 35.8
[2021-09-09 07:22] VITALS: BP 122/85; PULSE 85; RESP 16; TEMP 36.8; O2SAT 98
--- NOTE | 2021-09-09 08:27 | HMH.OBAPHP ---
OB - H&P: HPI Antepartum - History of Present Illness Chief complaint: She is a 26-year-old 2 para 1 and having a few contractions. History of present illness: She is a 26-year-old 2 para 1 patient who is 39 weeks gestational age. She was having a few contractions in my office and was feeling uncomfortable. As result of that we elected to induce her labor at term. - History of Present Criteria for establishing EDC:: LMP confirmed by 1st trimester US care: good care Ultrasounds: normal 1st trimester US, normal mid trimester US Obstetrical complications: none Medical complications: none - Labs Blood type: O (-) negative Rubella: immune RPR/VDRL: nonreactive GBS status: negative HBsAG: negative [facility] History I have reviewed the patient's past medical history: Yes Medical History: Reports:: Seizures Denies:: Cancer, Diabetes Mellitus Type 1, Diabetes Mellitus Type 2, Internal Pacemaker, MRSA *Have you ever received a pneumonia vaccine?: No *Have you received a flu vaccine this season?: No Other Medical History: Denies: Blood Transfusion Reaction Other Surgeries: Yes: No Previous Surgery, Other. No: , Pacemaker Amputation: No Fractures: No - *Social History Smoking Status: Current every day smoker Tobacco Type: cigarettes # Packs/Day (cigarettes): 1 Alcohol Intake: never Alcohol Intake Frequency:: other Substance Use Type: denies use *Occupational Status:: unemployed Housing: house Household Members: family *Travel in the last 8 weeks: None Family Hx:: No significant family history SECOND CRUSHER history: Spontaneous Para: 1 Review of Systems - Review of Systems Review of systems:: pertinent systems reviewed and negative unless documented below Meds Home Medications Medication Instructions Recorded Confirmed Type ferrous sulfate 325 mg (65 mg 325 mg PO DAILY #30 tab 04/30/21 09/04/21 Rx iron) tablet prenat.vits,álvaro,[id number] 1 tab PO DAILY #30 tab 04/30/21 09/04/21 Rx Allergies Allergy/AdvReac Type Severity Reaction Status Date / Time cefaclor [From Ceclor] Allergy Unknown Verified 09/04/21 09:31 OB - H&P: Exam - Physical Exam Vital signs: Temp Pulse Resp BP Pulse Ox 98.3 F 85 16 122/85 98 09/09/21 07:22 09/09/21 07:22 09/09/21 07:22 09/09/21 07:22 09/09/21 07:22 - Constitutional no acute distress - Routine HEENT Exam Head: Present: normocephalic Eye: Present: EOMI, PERRL ENT: Present: mucous membranes moist - Routine Neck Exam Present: supple, full ROM - Routine Respiratory Exam Absent: accessory muscle use (good air entry bilaterally), respiratory distress, wheezes, crackles - Routine Cardiovascular Exam Present: RRR. Absent: murmur - Routine Abdominal Exam Present: soft, normoactive bowel sounds. Absent: tenderness, distended, guarding - Routine Rectal Exam Patient deferred: visual exam, digital exam - Routine Exam Patient deferred: external exam, groin exam, perineal exam - Routine Extremities Exam Present: full ROM. Absent: cyanosis, edema - Routine Skin Exam Present: intact. Absent: cyanosis - Routine Neurological Exam Present: alert, oriented X3 - Routine Psychiatric Exam Present: normal affect OB - Results - Labs Labs: Short CBC 09/09/21 Range/Units 05:00 WBC 8.2 (4.8-10.8) K/mm3 Hgb 11.6 L (12.2-16.2) g/dL Hct 35.8 L (37.0-47.0) % Plt Count 183 (142-424) K/mm3 OB - A/P Antepartum (1) Normal delivery at term Status: Acute (2) Deaf mutism, congenital Status: Acute - Additional Plan Planning to breastfeed?: No Plan: induction Additional Information:: She is admitted for labor and delivery at term. She had a previous vaginal delivery.
--- NOTE | 2021-09-09 08:46 | HMH.LABNOT ---
Labor Note - Subjective: Date: 09/09/21 Time: 08:46 regular contraction - Objective: NST:: Reactive Contractions:: every 2-3 minutes Cervical Dilation:: 4-5 Effacement:: 90% Station: -1 Membranes: spontaneously ruptured - Fetus: Monitoring?: Yes monitoring type:: Internal Comment:: IUPC and scalp clip inserted - Assessment: Labor progressing?: Yes Cephalopelvic disproportion?: No Patient Problems: All Active Problems Normal delivery at term (Acute) (Acute) Wrist sprain (Acute) Deaf mutism, congenital (Acute) - Plan: Anesthesia for epidural?: No Continue to labor down?: Yes Plan for ?: No Continue to monitor?: Yes Start pushing?: No
[2021-09-09 12:10] VITALS: BP 121/71; PULSE 78; RESP 18; TEMP 36.7
--- NOTE | 2021-09-09 12:14 | P.PCN_ITS ---
- Delivery Note Delivery Date:: 09/09/21 Delivery Time:: 11:06 Anesthesia Type: None Was labor medically induced?: Yes Induction method: per pitocin protocol Gestational age (weeks): 39 Infant delivered prior to 39 weeks?: No Gender: Male at 1 minute: 9 at 5 minutes: 9 LAC or MLE?: LAC Delivery Procedure:: She is a 26-year-old 2 para 1 who was 39+ weeks gestational age. She was having contractions occasionally and pressure and elected to be induced. She was started on IV oxytocin had her membranes ruptured. She progressed to full dilation and delivered spontaneously a liveborn male child at 11:06 AM on the morning of September 09, 2021. On deliver the head it was noted that there was a loose nuchal cord which was reduced. This was followed by the anterior shoulder and the rest of his body atraumatically. The baby's oropha rynx and nasopharynx were bulb suction. The baby was vigorous. We allowed the cord to continue to pulsate for approximately 1 minute. The cord was then doubly clamped and cut and the infant was placed on the mother's abdomen for further care. The nurses assigned Apgars of 9 at 1 minute and 9 at 5 minutes. We obtained cord blood. She received IV oxytocin and using gentle traction on the cord and countertraction on the fundus I was able to easily deliver the placenta intact. He had a normal three-vessel cord. She had a small second-degree perineal laceration was repaired with 3-0 Vicryl Rapide suture to the superficial tissues and 2-0 Vicryl suture to the deep tissues. She has O Rh- blood, she is rubella immune and was group B streptococcus negative. She plans to bottlefeed. Her estimated blood loss was approximately 300 cc. Laceration:: vaginal
[2021-09-09 16:33] VITALS: BP 133/80; PULSE 79; RESP 17; TEMP 36.8; O2SAT 97
[2021-09-09 20:18] VITALS: BP 118/77; PULSE 73; RESP 18; TEMP 36.7; O2SAT 96
[2021-09-10 04:02] VITALS: BP 126/82; PULSE 78; RESP 18; TEMP 37; O2SAT 98
[2021-09-10 06:55] LABS: Hematocrit 32.7 % (37.0-47.0); Hemoglobin 10.8 g/dL (12.2-16.2)
--- NOTE | 2021-09-10 14:25 | SW/DCPLANNER ---
I received a referral for this patient regarding MD wanting to ensure that parents have everything they need at home for . I did visit with patient and infant this afternoon. Both patient and infants father (Estuardo Hankins) are deaf. I did ask this patient several questions via writing it out. Infant male (Ketan Garza) was born on 09/09/21. Infants father is involved with care. Patient stated that she will reside at [address] [place] [address]. Patients did list a friend as a pharmaceutical salesperson: Eva Rao [phone]. Patient stated that she has the following items at home: crib, carseat, clothing, diapers and will be bottlefeeding. Patient stated that she is established with WIC. The plan for this patient is to discharge home tomorrow. Patient has no further needs at this time.
[2021-09-10 19:51] VITALS: BP 121/81; PULSE 81; RESP 18; TEMP 36.8; O2SAT 96
[2021-09-11 02:58] VITALS: BP 138/90; PULSE 79; RESP 18; TEMP 36.9
--- NOTE | 2021-09-11 09:33 | HMH.OBDCSM ---
General - General Admission date:: 09/09/21 Discharge date: 09/11/21 HPI - History of Present Illness History of present illness: She is a 26-year-old 4 now para 2 aborta 2 who was 39 weeks gestational age. She was having pressure and contractions occasionally so she elected to have induction at term. Hospital Course Hospital Course: She was started on IV oxytocin and had her membranes ruptured. She progressed to full dilation and delivered spontaneously a liveborn male child at 11:06 AM on the morning of September 09, 2021. The baby weighed 8 pounds 2 ounces and was 20 inches long. He had Apgars of 9 at 1 minute and 9 at 5 minutes. She has done well and has remained afebrile throughout her hospitalization. She is eating and drinking and ambulating. She is bottlefeeding. Her high school english teacher is Dr. Santillan. She has O Rh- blood and she has received RhoGam. She is rubella immune and was group B streptococcus positive. She did receive IV antibiotics while in labor. She is discharged home to follow-up with me in approximately 2 weeks time. She will continue with her vitamins and iron. She was given the usual instructions with respect to limiting her activity, driving and sexual activity. Her condition on discharge is stable and improved. Rhogam Administration: Given Objective Vital signs: Temp Pulse Resp BP Pulse Ox 98.4 F 79 18 138/90 96 09/11/21 02:58 09/11/21 02:58 09/11/21 02:58 09/11/21 02:58 09/10/21 19:51 no acute distress - *Routine HEENT Exam Head: Present: normocephalic Eye: Present: EOMI, PERRL ENT: Present: mucous membranes moist Results Labs on day of discharge: Labs from last 24 hours 09/10/21 06:25 Screen Negative Baby's Rh Status Positive Rhogam Infusion Rhogam release DS: Diagnosis - Discharge Diagnosis (1) Normal delivery at term Status: Acute (2) Deaf mutism, congenital Status: Acute Discharge Plan - Patient Discharge Instructions ACTIVITY: No heavy lifting DIET: continue same diet Additional Instructions: NO HEAVY LIFTING OR STRENUOUS ACTIVITY NOTHING IN VAGINA FOR [address] FOLLOW-UP WITH DR. GALLAGHER ON Patient Instructions: Depression, Labor and Delivery, Vaginal , Hemorrhage, DI for Pre-eclampsia, [facility] Post Discharge Instructions, Preventing the Spread of Coronavirus Discharge Instructions - Follow up Plan Follow up with: Asif Gallagher MD [Primary Care Provider] - Disposition: Home, Self-Care Condition at discharge:: Stable Home Medications: Home Medications Medication Instructions Recorded Confirmed Type prenat.vits,álvaro,[id number] 1 tab PO DAILY #30 tab 04/30/21 09/09/21 Rx Ferrous Sulfate 325 mg PO DAILY 09/09/21 09/09/21 History Prescriptions/Medication Reconciliation: Continued prenat.vits,álvaro,[id number] 1 tab PO DAILY #30 tab Ferrous Sulfate 325 mg PO DAILY - Problem Reconciliation Problems Reviewed?: Yes
== END 2021-09-11 13:00 | disposition home or self-care (01) | DRG 807 ==
PROVIDERS: Admitting Provider Nurse Practitioner Obstetrics & Gynecology; PCP Nurse Practitioner Obstetrics & Gynecology; Visit Provider Nurse Practitioner Obstetrics & Gynecology
DX: O99.334 Smoking (tobacco) complicating childbirth (principal); Z37.0 Single live birth; O70.1 Second degree perineal laceration during delivery; Z3A.39 39 weeks gestation of pregnancy; O75.89 Other specified complications of labor and delivery; H91.3 Deaf nonspeaking, not elsewhere classified
CPT/HCPCS: 59409; 59300; 59025; 80305; 85014; 85018; 85025; 85461; 86850; 86870; C1758; C9803; J0290; J0595; J2790; U0003; U0005

== ENCOUNTER 2021-09-14 17:55 | Emergency (ER) | payer OTHER, SELFPAY ==
[2021-09-14 18:47] VITALS: BP 134/97; PULSE 93; RESP 16; TEMP 36.9; O2SAT 97; BMI 32.9
--- NOTE | 2021-09-14 19:34 | HMH.EDUTC ---
[facility] [place] Disposition Clinical Impression: Rash Disposition: Home, Self-Care Condition on Discharge: Good Instructions: DI for Rash Additional Instructions: Over the counter Benadryl may help with itching of rash Oatmeal Baths may help to clear the rash and help with itching Look around and make sure that nothing has change like laundry soap, bath soap etc Follow up with Family Doctor or Dr Gallagher if no improvement or any worsening of symptoms Prescriptions: predniSONE [Deltasone 10mg tablet] 10 mg PO BID 5 Days #10 tab Transmission Status: Pending to [id number] Referrals: Provider,Referral, [Primary Care Provider] - As needed Time of Disposition: 20:11 Medical Decision Making - Néstor Inquiry Pt receiving controlled substance: No Néstor was queried for this patient: No Vital Signs: 09/14/21 18:47 09/14/21 20:02 Temperature 98.4 F 98.4 F Temperature Source Oral Pulse Rate 93 H Pulse Rate [Left] 93 H Respiratory Rate 16 16 Blood Pressure 134/97 H Blood Pressure [Right Arm] 134/97 H Blood Pressure Mean [Right Arm] 109 02 Sat by Pulse Oximetry 97 Orders (Tests/Meds): ED MEDICATIONS Discontinued Medications Generic Name Dose Route Start Last Admin Trade Name Freq PRN Reason Stop Dose Admin Methylprednisolone Sodium Succinate 125 mg 09/14/21 19:44 09/14/21 19:56 Methylprednisolone Sod Succ 125mg Vial IM 09/14/21 19:45 125 mg ONCE ONE Administration Medical Decision Narrative: Patient denies breast feeding. Rash improved after medication [facility] [place] HPI - General Stated complaint: rash on her back Time Seen by Provider: 09/14/21 19:34 Mode of Arrival: Ambulatory Source of Information: Patient Limitations: No Limitations Description of Symptoms (Recalled from Triage Doc. by RN): pt c/o a rash on her back and under her breasts. this has been ongoing since 09/11. pt is post delivery was 09/09. HEENT Symptoms (Recalled from RN notes): No Resp Symptoms (Recalled from RN notes): No Skin Symptoms (Recalled from RN notes): Yes (rash on back and under breasts) MS Symptoms (Recalled from RN notes): No Functional Status (Recalled from RN notes): na - History of Present Illness Provider Complaint: Patient is deaf and mother is at bedside and can help comminicate states that she just had baby on and rash started on tuesday in hospital States that it has continued and is itchy - Related Data Home Medications Medication Instructions Recorded Confirmed Ferrous Sulfate 325 mg PO DAILY 09/09/21 09/09/21 Previous Rx's Medication Instructions Recorded prenat.vits,álvaro,[id number] 1 tab PO DAILY #30 tab 04/30/21 predniSONE [Deltasone 10mg tablet] 10 mg PO BID 5 Days #10 tab 09/14/21 Allergies Allergy/AdvReac Type Severity Reaction Status Date / Time cefaclor [From Ceclor] Allergy Unknown Verified 09/04/21 09:31 - Worker's Comp Is this a Worker's Comp case?: No [facility] History - Hepatitis A Screen Drug use history?: No High risk sexual behaviors?: No History of sexually transmitted infection?: No Currently employed?: No Childcare worker?: No Do you have indoor plumbing?: Yes Do you have electricity?: Yes Attestation statement:: This patient has been screened for Hepatitis A risk factors. I have reviewed the patient's past medical history: Yes Medical History: Reports:: Seizures Denies:: Cancer, Diabetes Mellitus Type 1, Diabetes Mellitus Type 2, Internal Pacemaker, MRSA Other Medical History: Denies: Blood Transfusion Reaction Comment: EEG done several years ago Other Surgeries: Yes: No Previous Surgery, Other. No: , Pacemaker Amputation: No Fractures: No Comment: lesion excision- earlobe - Social History Smoking Status: Current every day smoker Tobacco Type: cigarettes # Packs/Day (cigarettes): 1 Alcohol Intake: never Alcohol Intake Frequency:: other Substance Use Type: denies use Occupational Status: unemployed Housing: [facility]
[2021-09-14 20:02] VITALS: BP 134/97; PULSE 93; RESP 16; TEMP 36.9
== END 2021-09-14 20:21 | disposition home or self-care (01) ==
PROVIDERS: Emergency Provider Nurse Practitioner
DX: R21 Rash and other nonspecific skin eruption (principal); F17.210 Nicotine dependence, cigarettes, uncomplicated
CPT/HCPCS: 96372; 99202; G0463